=== PATIENT | female | born 1950 | race Caucasian/White ===

== ENCOUNTER → 2019-12-18 | Outpatient (CLI) | payer MEDICARE | LOC: COL.RAD 12-07 07:30 | DX: K86.2 Cyst of pancreas (principal) ==

== ENCOUNTER → 2020-03-04 | Outpatient (CLI) | payer MEDICARE | LOC: MC.RAD 10:15 | DX: Z12.31 Encounter for screening mammogram for malignant neoplasm of breast (principal); Z78.0 Asymptomatic menopausal state ==

== ENCOUNTER 2021-01-21 14:58 | Outpatient (CLI) | payer MEDICARE ==
[~2021-01-21] VITALS: Ht 175.3 cm; Wt 68.6 kg
[2021-01-21 16:24] VITALS: BP 135/70; PULSE 66; TEMP 98.2
[2021-01-21] MEDS ORDERED: VICTOZA6 MG/ML SQ (16:45)
[2021-01-21] MEDS ORDERED: LANTUS100 U/ML SQ (16:45)
[2021-01-21] MEDS ORDERED: GLUCOPHAGE500 MG/TAB PO (16:46)
[2021-01-21] MEDS ORDERED: PRILOSEC 20MG20 MG PO (16:46)
[2021-01-21] MEDS ORDERED: CRESTOR20 MG PO (16:47)
[2021-01-21] MEDS ORDERED: MICARDIS20 MG PO (16:47)
[2021-01-21] MEDS ORDERED: ZOLOFT 100MG100 MG PO (16:47)
[2021-01-21] MEDS ORDERED: K-DUR20 MEQ PO (16:48)
[2021-01-21] MEDS ORDERED: FOSAMAX 70MG TA70 MG PO (16:49)
[2021-01-21] MEDS ORDERED: DITROPAN 5MG TAB5 MG PO (16:49)
[2021-01-21] MEDS ORDERED: CALCIUM 600 PLU1 TAB PO (16:50)
[2021-01-21] MEDS ORDERED: MULTI VITAMINS1 TAB PO (16:51)
[2021-01-21] MEDS ORDERED: NATURAL IRON65 MG PO (16:53)
[2021-01-21] MEDS ORDERED: ASPIRIN 81M81 MG/TA2 PO (16:53)
== END 2021-01-21 17:26 ==
LOC: EUO 14:58
DX: M81.0 Age-related osteoporosis without current pathological fracture (principal)
CPT/HCPCS: J3489

== ENCOUNTER → 2021-01-31 | Outpatient (CLI) | payer MEDICARE ==
[~2021-01-31] MED LIST: ASPIRIN 81M81 MG/TA2 PO; CALCIUM 600 PLU1 TAB PO; CRESTOR20 MG PO; DITROPAN 5MG TAB5 MG PO; FOSAMAX 70MG TA70 MG PO; GLUCOPHAGE500 MG/TAB PO; K-DUR20 MEQ PO; LANTUS100 U/ML SQ; MICARDIS20 MG PO; MULTI VITAMINS1 TAB PO; NATURAL IRON65 MG PO; PRILOSEC 20MG20 MG PO; VICTOZA6 MG/ML SQ; ZOLOFT 100MG100 MG PO
== END ==
LOC: COL.RAD 01-27 08:15
DX: K86.2 Cyst of pancreas (principal); Z90.49 Acquired absence of other specified parts of digestive tract
CPT/HCPCS: A9575

== ENCOUNTER → 2021-08-07 | Outpatient (CLI) | payer MEDICARE | LOC: MC.RAD 14:11 | DX: Z12.31 Encounter for screening mammogram for malignant neoplasm of breast (principal) ==

== ENCOUNTER → 2023-05-06 | Outpatient (CLI) | payer MEDICARE ==
[~2023-05-06] MED LIST changes: +CRESTOR40 MG PO; +FOSAMAX 10M10 MG/TAB PO; +K-TAB20 PO; +MICARDIS40 MG PO; +MICARDIS80 MG PO; +REGLAN 5MG T5 MG/TAB PO; +VITAMIN D31000 I1 PO; +ZOFRAN 4MG T4 MG/TAB PO
== END ==
LOC: COL.RAD 10:38
DX: N28.1 Cyst of kidney, acquired (principal)

== ENCOUNTER → 2023-06-15 | Outpatient (CLI) | payer MEDICARE | LOC: COL.RAD 10:00 | DX: E83.52 Hypercalcemia (principal) | CPT/HCPCS: A9500-JZ ==

== ENCOUNTER → 2023-11-25 | Outpatient (CLI) | payer MEDICARE ==
[~2023-11-25] VITALS: Ht 175.3 cm; Wt 63.0 kg
[~2023-11-25] MED LIST changes: +SOLIQUA 100 UNIT3 ML SQ
[2023-11-25 12:15] VITALS: BP 128/72; PULSE 53; TEMP 98.1
[2023-11-25 13:20] VITALS: BP 139/68; PULSE 60
== END ==
LOC: COL.RAD 11:38
DX: E04.2 Nontoxic multinodular goiter (principal)
CPT/HCPCS: 32106

== ENCOUNTER → 2024-01-26 | Outpatient (CLI) | payer MEDICARE | LOC: COL.RAD 07:41 | DX: R11.0 Nausea (principal) | CPT/HCPCS: A9541-JZ ==